=== PATIENT | male | born 1930 | race Caucasian/White ===

== ENCOUNTER 2016-08-04 12:03 | Observation (INO) | payer MEDICARE, OTHER ==
[~2016-08-04] VITALS: Ht 177.8 cm; Wt 113.2 kg
[~2016-08-04 12:03] MED LIST: COU2 PO; FINASTERIDE PO; GABEPENTIN PO; GLIP5TAB26 PO; MVI PO; NYST15CR TP; PRE10 PO; PROT40T PO; VICES PO
[2016-08-04 12:05] VITALS: BP 166/70; PULSE 86; RESP 16; O2SAT 96
--- NOTE | 2016-08-04 12:27 | ED.REPORT ---
HPI- Male Date of Service Aug 04, 2016 ED Provider: History of Present Illness: 85-year-old male here for blood in his catheter. He has a history of this starting 1 month ago. His hospitalized for likely urosepsis in [place] one month ago, and has been rehabbing at [facility] for the last 2 weeks. He has had blood in his catheter almost the entire time, he will go a day or 2 without it and the blood will return. He has had multiple Wilkins replacement and flushes the blood keeps returning. 2 days ago he was started on Cipro for UTI. In the last 3 days she has become increasingly tired and "sick" with fatigue, not feeling like doing anything. THis is prompting the visit today. No fever. No URI symptoms. No CP or SOB. Just feels ill. Last checked his warfarin was 2.8 yesterday. Saw his PCP a few days ago as well. He started with the catheter one month ago while in the hospital he has never used a catheter before that. Having low back pain but no flank pain. No abdominal pain. Nursing Notes Stated Complaint: BLOOD IN URINE Chief Complaint: Male Abdominal Pain Nursing Notes Reviewed: Yes Allergies: Coded Allergies: atorvastatin (Verified Allergy, Mild, 08/04/16) methotrexate (Verified Allergy, Mild, 08/04/16) oxycodone (Verified Adverse Reaction, Intermediate, agitation, anxiety, ) Scheduled Ciprofloxacin (Cipro) 250 Mg Tablet 250 MG PO BID for 5 days starting on 08/04/16 Duloxetine (Duloxetine) 30 Mg Capsule.dr 30 MG PO QAM Finasteride (Finasteride) 5 Mg Tablet 5 MG PO HS Gabapentin (Gabapentin) 100 Mg Capsule 200 MG PO QAM Gabapentin (Gabapentin) 400 Mg Capsule 400 MG PO HS Glipizide (Glipizide) 5 Mg Tablet 5 MG PO QAM Metoprolol Tartrate (Metoprolol Tartrate) 25 Mg Tablet 25 MG PO BID Multivits,Ca,Minerals/Iron/FA (Thera-M Tablet) 1 Each Tablet 1 EACH PO QAM Oxybutynin Chloride (Oxybutynin Chloride) 5 Mg Tablet 5 MG PO BID Prednisone (PredniSONE) 10 Mg Tablet 10 MG PO QAM Warfarin Sodium (Warfarin Sodium) 1 Mg Tablet 1 MG PO 2 times weekly every saturday and thursday evening Warfarin Sodium (Warfarin Sodium) 2 Mg Tablet 2 MG PO 4 times weekly every saturday,saturday,saturday , saturday evening Scheduled PRN Bisacodyl (Dulcolax Rectal) 10 Mg Supp.rect 10 MG RC q3days PRN PRN For Constipation Docusate Sodium (Docusate Sodium) 250 Mg Capsule 250 MG PO BID PRN PRN For Constipation Hydrocodone-Acetaminophen 10-325 mg (Hydrocodone-Acetaminophen 10-325 mg) 1 Each Tablet 2 TABLET PO Q4H PRN PRN For Pain for pain level 6-10 Hydrocodone-Acetaminophen 10-325 mg (Hydrocodone-Acetaminophen 10-325 mg) 1 Each Tablet 1 TABLET PO Q4H PRN PRN For Pain for pain level 1-5 Magnesium Hydroxide (Milk of Magnesia) 400 Mg/5 Ml Oral.susp 30 ML PO DAILY PRN PRN For Constipation Sennosides (Senna) 8.6 Mg Tablet 8.6 MG PO BID PRN PRN For Constipation General Time Seen by MD: 12:15 Transferred From: skilled nursing Chief Complaint Blood in urine, Other (sick) Hx Obtained From: Patient, Spouse Arrived By: Walk-in Onset Occurred: 2 days ago Context of Onset: Spontaneous Symptom Duration: Since onset Location: : Back Severity: Current: Moderate Severity: Maximum: Moderate Associated with: Reports: Chills, Nausea Pertinent Negative: Pt denies other symptoms Recent Healthcare: Recent doctor visit, Recent hospitalization Similar Sx Previous: Yes Risk- Male Risk Notes: recent urosepsis Review of Systems Review of Systems Note: hematuria and feeling ill Basic Review of Systems Eyes: Vision NL, No discharge ENT: Hearing NL, No pain, No nasal congestion, No pharyngeal pain Respiratory: No shortness of breath, No cough, No wheeze Cardiovascular: No chest pain, No dyspnea on exertion, No orthopnea, No parox noct dyspnea, No palpitations Allergy / Immune: No allergy Neurologic: NL mental status, No weakness, No numbness Psychiatric: Normal thought content Constitutional: Reports: Chills, Fatigue, Malaise GI: Reports: Nausea, Denies: Abdominal pain, Vomiting Male: Reports Hematuria, Denies Dysuria, Denies Penile discharge Musculoskeletal: Reports: Back pain (lumbar) Complete sys rev & neg: except as marked. Physical Exam Initial Vital Signs Vital Signs (First) Date Time Temp Pulse Resp B/P Pulse Ox O2 Delivery O2 Flow Rate FiO2 08/04/16 12:05 36.3 86 16 166/70 96 Room Air Initial VS: Reviewed, Vital signs normal General/Constitutional: Well-developed, Well-nourished Head / Eyes: Atraumatic, Normocephalic, PERRL ENT: Mucous membranes moist, Conjunctiva normal, No scleral icterus Neck: Supple, Non-tender, Full range of motion Respiratory: Breath sounds normal, Clear to auscultation, No respiratory distress Cardiovascular: Intact distal pulses Back: No CVA tenderness Lymphatic: No lymphadenopathy Extremities: Vascular intact, Neuro intact, No swelling, No tenderness Skin: Warm, Dry, No cyanosis Neurologic: Alert, Oriented, Nonfocal Psychiatric: Mood/affect normal, Behavior normal, Normal thought content large amount of blood noted in wilkins General/Constitutional: Awake, Alert appears sick Abdomen: Atraumatic, Soft, Non-tender, McBurney's non-tender, No guarding, No rebound, BS normoactive, No distention, No hernia, No palpable mass, No pulsatile mass Head / Eyes: Atraumatic, Normocephalic, PERRL goopy L eyelid Respiratory / Chest: Atraumatic, Breath sounds NL, Breath sounds = bilat, No respiratory distress Cardiovascular: Cap refill not delayed Heart Sounds / Murmur: Positive: Systolic murmur present.. (IV/) Back: Atraumatic, Inspection NL Muscle Spasm / ROM: Positive: Latisimus dorsi tender R, Lumbar area spasm no cva tenderness Interpretation & Diagnostics Interpretation & Diagnostics: IMPRESSION: Streaky opacities in the lung bases bilaterally compatible with atelectasis versus less likely pneumonia. Please correlate with clinical and laboratory data. Lab Results Interpretation Result Diagram: 08/04/16 1253 08/04/16 1253 Test 08/04/16 12:32 08/04/16 12:53 08/04/16 13:50 08/04/16 14:28 Lactic Acid Level 1.7mmol/L (0.4-2.0) White Blood Count 8.8th/mm3 (3.8-10.1) Red Blood Count 3.06mil/mm3 (4.40-5.80) Hemoglobin 9.0g/dL (13.8-17.2) Hematocrit 29.3% (41.0-50.0) Mean Corpuscular Volume 95.8fL (81-100) Mean Corpuscular Hemoglobin 29.4pg (27.0-35.0) Mean Corpuscular Hemoglobin Concent 30.7% (32.0-37.0) Red Cell Distribution Width 15.2% (12.3-15.4) Platelet Count 187bil/L (150-400) Neutrophils (%) (Auto) 75.7% (40-74) Lymphocytes (%) (Auto) 13.9% (14-46) Monocytes (%) (Auto) 6.2% (4-12) Eosinophils (%) (Auto) 3.4% (0-5) Basophils (%) (Auto) 0.6% (0-3) Prothrombin Time 26.6sec (8.1-12.5) Prothromb Time International Ratio 2.44ratio Sodium Level 142mEq/L (134-144) Potassium Level 4.2mEq/L (3.5-5.2) Chloride Level 102mEq/L (97-108) Carbon Dioxide Level 28mmol/L (18-29) Blood Urea Nitrogen 17mg/dL (8-27) Creatinine 0.92mg/dL (0.76-1.27) Estimat Glomerular Filtration Rate 84mL/min (>59) Glucose Level 75mg/dL (60-99) Calcium Level 8.2mg/dL (8.5-10.1) Magnesium Level 1.4mg/dL (1.6-2.6) Total Bilirubin 0.4mg/dL (0.0-1.2) Aspartate Amino Transf (AST/SGOT) 30U/L (0-50) Alanine Aminotransferase (ALT/SGPT) 16U/L (0-44) Alkaline Phosphatase 58U/L (25-160) Total Protein 5.3g/dL (6.4-8.4) Albumin 3.1g/dL (3.4-5.0) Urine Color Bloody (YELLOW) Urine Appearance Turbid (CLEAR,HAZY) Urine pH 6.0 (5.0-8.0) Urine Specific [place] 1.020 (1.003-1.035) Urine Protein 30mg/dL (NEG,TRACE) Urine Glucose (UA) Negativemg/dL (NEGATIVE) Urine Ketones Negativemg/dL (NEGATIVE) Urine Occult Blood Large (NEGATIVE) Urine Nitrite Negative (NEGATIVE) Urine Bilirubin Negative (NEGATIVE) Urine Urobilinogen Normalmg/dL (NORMAL) Urine Leukocyte Esterase Small (NEGATIVE) Urine RBC >50/hpf (0-2) Urine WBC 6-10/hpf (0-5) Urine Epithelial Cells Occasional/hpf (NONE-MOD) Urine Crystals None seen (NONE SEEN) Urine Bacteria None/hpf (NONE-FEW) Urine Hyaline Casts None/lpf (NONE) Urine Granular Casts None seen (NONE SEEN) Urine Waxy Casts None seen (NONE SEEN) Urine Red Blood Cell Casts None seen (NONE SEEN) Urine White Blood Cell Casts None seen (NONE SEEN) Urine Mucus None seen (None Seen) Urine Trichomonas None seen (NONE SEEN) Urine Yeast None (NONE SEEN) Urinalysis Comment None Urine Culture Reflexed Indicated Troponin T 0.053ug/L (0.0-0.011) Re-Eval/Medical Decision Med Decision/Clinical Course UC from [facility] obtained, [facility]. RBC, H&H unchanged, up a little. Elevated troponin reported for the lab will admit patient. PT still denies CP. lungs CTA. Discussed case with Dr. Lopez. NO change in second EKG. [id number] Dr Mock here for report for admit. Source of Hx: Old records, Family Discharge & Departure Shift Change Sign-Out Patient Care Transferred: No Discussed Complaint(s): Yes Laboratory Evaluation: Lab evaluation discussed Imaging Studies: Imaging discussed Response to Therapy: Unchanged Impression: Primary Impression: Non-STEMI (non-ST elevated myocardial infarction) Additional Impressions: Urinary tract infection Urinary tract infection type: catheter-associated UTI Encounter type: subsequent encounter Qualified Code: T83.51XD - Infection and inflammatory reaction due to indwelling urinary catheter, subsequent encounter Pneumonia Pneumonia type: due to unspecified organism Laterality: unspecified laterality Lung location: unspecified part of lung Qualified Code: B99.9 - Unspecified infectious disease Disposition: ADMITTED TO HOSPITAL Discharge Condition All VS Reviewed: Yes Condition: Stable Referrals: Yazan Hull MD (PCP) EDSupervising Provider for APC: Davidson Lopez MD copies to: Satnam Johnson MD; Davidson Lopez MD, Linnea K ARNP Aug 04, 2016 12:27
[2016-08-04] MEDS ORDERED: 0.9% Sodium Chloride 500 ML IV ONE (12:35)
[2016-08-04] MEDS ORDERED: GABA-504 PO (12:51)
[2016-08-04] MEDS ORDERED: GABA-500 PO (12:51)
[2016-08-04 13:05] LABS: BASOPHILS % (AUTO) 0.6 % (0-3); EOSINOPHILS % (AUTO) 3.4 % (0-5); MONOCYTES % (AUTO) 6.2 % (4-12); Mean Corpuscular Hemoglobin 29.4 pg (27.0-35.0); Mean Corpuscular Volume 95.8 fL (81-100); NEUTROPHILS % (AUTO) 75.7 % (40-74); Platelet Count 187 bil/L (150-400)
[2016-08-04] MEDS ORDERED: METO25TA6 PO (13:22)
[2016-08-04] MEDS ORDERED: CIPR-232 PO (13:22)
[2016-08-04] MEDS ORDERED: WARF1TAB6 PO (13:22)
[2016-08-04] MEDS ORDERED: OXYB5TAB10 PO (13:22)
[2016-08-04] MEDS ORDERED: SENN-133 PO (13:22)
[2016-08-04] MEDS ORDERED: WARF2TAB7 PO (13:22)
[2016-08-04] MEDS ORDERED: HYDR-3740 PO ×2 (13:22→13:45)
[2016-08-04 13:23] LABS: INR 2.44 ratio
[2016-08-04 13:38] LABS: Magnesium 1.4 mg/dL (1.6-2.6)
[2016-08-04] MEDS ORDERED: BISA10SU61 RC (13:45)
[2016-08-04] MEDS ORDERED: GLPZ5T PO (13:45)
[2016-08-04] MEDS ORDERED: MULT-32 PO (13:45)
[2016-08-04] MEDS ORDERED: DOCU250C2 PO (13:45)
[2016-08-04] MEDS ORDERED: DULO30CA50 PO (13:45)
[2016-08-04] MEDS ORDERED: PRE10 PO (13:45)
[2016-08-04] MEDS ORDERED: FINA5TAB9 PO (13:45)
[2016-08-04] MEDS ORDERED: MAGN400O4 PO (14:07)
[2016-08-04 14:09] VITALS: BP 149/66; PULSE 71; RESP 18; O2SAT 97
--- NOTE | 2016-08-04 14:10 | DRSVH ---
PROCEDURE: X-RAY CHEST ONE VIEW, PORTABLE ([id number]) INDICATIONS: malaise TECHNIQUE: One view of the chest was acquired. COMPARISON: None. FINDINGS: Surgical changes and devices: Bilateral shoulder arthroplasties. Fixation hardware in the thoracic spine. Lungs and pleura: No pleural effusions or pneumothorax acute opacities in the lung bases bilaterally . Mediastinum: Mediastinal contours appear normal. Heart size is normal. Bones and chest wall: No suspicious bony lesions. Overlying soft tissues appear unremarkable. IMPRESSION: Streaky opacities in the lung bases bilaterally compatible with atelectasis versus less likely pneumonia. Please correlate with clinical and laboratory data. Dictated by: Marbella Kitchen MD, PhD on 08/04/2016 at 14:07 Approved by: Marbella Kitchen MD, PhD on 08/04/2016 at 14:08
[2016-08-04 14:13] LABS: APPEARANCE,URINE TURBID (CLEAR,HAZY); COLOR,URINE BLOODY (YELLOW); OCCULT BLOOD,URINE LARGE (NEGATIVE); UROBILINOGEN,URINE NORMAL (NORMAL)
[2016-08-04 16:28] VITALS: BP 165/62; PULSE 82; RESP 19; O2SAT 99
[2016-08-04] MEDS ORDERED: Alum-Mag Hydrox-Simeth 30 mL Suspension PO PRN ×2 (17:30→17:45)
[2016-08-04] MEDS ORDERED: Ondansetron 2 mg/mL 2 mL Inj IVPUSH PRN ×2 (17:30→17:45)
[2016-08-04] MEDS ORDERED: Polyethylene Glycol (PEG) 17 Gm Powder PO PRN (17:45)
[2016-08-04 17:49] VITALS: BP 175/97; PULSE 75; RESP 18; O2SAT 92
--- NOTE | 2016-08-04 18:35 | PCM.HPMED ---
Subjective Date of Service Aug 04, 2016 Primary Provider: Admitting Physician: Lulu Mock MD Primary Care Physician: Satnam Johnson MD Attending Physician: Lulu Mock MD Chief Complaint: hematuria and feeling "poorly" History of Present Illness: he was recently in [facility] in [place] July 12 through July 25 and then discharged to a [facility] facility. He has continued to have hematuria, does have an indwelling Wilkins. His says he was seen by his urologist this past week who did not make any changes and told him to return in 4 weeks. They felt his hematuria was worsening and they came here to the emergency department on a Saturday for another opinion. Because he complained of feeling poorly. Troponin was done which is just slightly elevated and because of this the emergency room physician feels he needs admission. He denies any chest pain or shortness of breath. No cough. No fever chills or sweats. Review of Systems: As noted apparently continues to have red urine in his Wilkins bag. He does have chronic back pain and also some other chronic arthritic pains but does not feel he has any, acute pain. review of systems is otherwise unremarkable except as above Allergies Coded Allergies: atorvastatin (Verified Allergy, Mild, 08/04/16) methotrexate (Verified Allergy, Mild, 08/04/16) oxycodone (Verified Adverse Reaction, Intermediate, agitation, anxiety, ) Home Medications Duloxetine 30 mg each am Finasteride 5 mg each bedtime Glipizide 5 mg every morning Prednisone 10 mg every morning Multivitamin every morning Warfarin 1 mg on August 02, 2 mg on August 03 Gabapentin 200 mg every morning and 400 mg at bedtime Cipro 250 mg twice a day scheduled to start this morning is not clear he received any doses DOS 250 mg twice a day when necessary Hydrocodone acetaminophen 10-325, 1 tablet pain 1-5, 2 tablets if 6-10, Every 4 hours when necessary Metoprolol 25 mg twice a day Oxybutynin 5 mg twice a day Olanzapine 2.5 mg prn for anxiety appears to have been DC'd [facility] Hospitalized in at [facility] in [place], July 12 through 07/25/2016 - Admitted with confusion - Found to have cellulitis of the lower legs with possible sepsis - Acute kidney injury from obstruction from a very large clot in his bladder which was evacuated - Several bleeders fulgurated during cystoscopy - Persistent hematuria - Could not tolerate Flomax due to low blood pressure and was discharged with an indwelling Wilkins Type II diabetes mellitus with polyneuropathy Hypertension Sleep apnea hx GI bleeding 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 January 2015 Polymyalgia rheumatica on chronic prednisone so presumed adrenal insufficiency Chronic Afib on chronic anticoagulation Chronic kidney disease stage II Hyperlipidemia aortic stenosis Ischemic heart disease is on his problem list but his last coronary angiogram in 2012 showed only mild irregularities Renal calculus, left - reports lithrotripsy failed Surgical History lumbar spine surgery Bilateral total knee replacement Rotator cuff repair Tonsillectomy Shoulder replacement bilaterally Social History Hx Alcohol Use: No (2-3 TIMES WEEKLY) Hx Substance Use: No Hx Tobacco Use: No Additional Information has POLST from SNF, reviewed with him and his Exam Vital Signs Vital Sign - Last Date Time Temp Pulse Resp B/P Pulse Ox O2 Delivery O2 Flow Rate FiO2 08/04/16 17:49 37.5 75 18 175/97 92 Room Air Exam General: Alert and oriented but feels details of his medical history should obtained from , no acute distress HEENT: Unremarkable Neck thick but no apparent JVD, carotids 2+ Heart: Regular, 2 to 3/6 systolic murmur throughout Lungs: Clear Abdomen: Soft, non-tender, normal bowel tones Extremities: trace pedal edema, runs and skin changes of the anterior lower legs Neuro: Strong and equal, able to raise both legs off the bed Lab and Diagnostics Result Diagram: 08/04/16 1253 08/04/16 1253 Assessment & Plan Assessment & Plan Assessment & Plan # Mildly elevated troponin of unclear significance, no symptoms of acute ischemia and no acute EKG changes - no significant CAD on angiogram in 2012 - Will observe and repeat troponin in the am # Hematuria, present for at least a month - continue wilkins - patient and request urology consult for second opinion, have placed a call to urology but they haven't responded. Did warn patient and that they may not want to consult over the weekend for a chronic problem # Urine culture from August 02 with 50,000-100,000 Morganella morganii - see below - also 10,000-50,000 viridan streptococcus group for which sensitivities were not done, or at least not yet reported # Chest x-ray with basilar atelectasis versus less likely pneumonia - Patient has been feeling poorly but no other symptoms of pneumonia - For now will treat his UTI with ceftriaxone, which would also treat some pneumonia, instead which apparently he has been prescribed but not started # Anemia, no acute worsening - Hct 29.3 on July 21 # Hypomagnesemia - will give 1 gm IV now and recheck in am # Chronic A. fib on chronic anticoagulation - Continue warfarin and metoprolol # Type II diabetes mellitus with polyneuropathy - Continue his usual medications - Glucoscans and use when necessary sliding scale insulin if needed # Hypertension - Continue metoprolol Lulu Mock MD Aug 04, 2016 19:14 Lulu Mock MD Aug 04, 2016 18:35
--- NOTE | 2016-08-04 18:51 | NUR ---
Admission Patient admitted to the floor at 1745 from the ED. Admit questions and med list accomplished by primary RN. Vitals - t-37.5, bp-165/62, p-82, rr-19, o2-92 @ RA. Patient complained of 0/10 pain. Oriented patient to the room, placed bed in lowest position and call light within reach.
--- NOTE | 2016-08-04 19:14 | PCM.HPMED ---
Subjective Date of Service Aug 04, 2016 Primary Provider: Admitting Physician: Lulu Mock MD Primary Care Physician: Satnam Johnson MD Attending Physician: Lulu Mock MD Chief Complaint: hematuria and feeling "poorly History of Present Illness: he was recently in [facility] in [place] July 12 through July 25 and then discharged to a correction facility. He has continued to have hematuria, does have an indwelling Wilkins. His says he was seen by his urologist this past week who did not make any changes and told him to return in 4 weeks. They felt his hematuria was worsening and they came here to the emergency department on a Saturday for another opinion. Because he complained of feeling poorly. Troponin was done which is just slightly elevated and because of this the emergency room physician feels he needs admission. He denies any chest pain or shortness of breath. No cough. No fever chills or sweats. Allergies Coded Allergies: atorvastatin (Verified Allergy, Mild, 08/04/16) methotrexate (Verified Allergy, Mild, 08/04/16) oxycodone (Verified Adverse Reaction, Intermediate, agitation, anxiety, ) PMH Social History Hx Alcohol Use: No (2-3 TIMES WEEKLY) Hx Substance Use: No Hx Tobacco Use: No Exam Vital Signs Vital Sign - Last Date Time Temp Pulse Resp B/P Pulse Ox O2 Delivery O2 Flow Rate FiO2 08/04/16 17:49 37.5 75 18 175/97 92 Room Air Lab and Diagnostics Result Diagram: 08/04/16 1253 08/04/16 1253 Assessment & Plan # Mildly elevated troponin of unclear significance, no symptoms of acute ischemia and no acute EKG changes - no significant CAD on angiogram in 2012 - Will observe and repeat troponin in the am # Hematuria, present for at least a month - continue wilkins - patient and request urology consult for second opinion, have placed a call to urology but haven't responded. Did warn them that they may not want to consult over the weekend for a chronic problem Lulu Mock MD Aug 04, 2016 19:14
[2016-08-04] MEDS ORDERED: Glucose 40% Oral Gel 15 Gm Tube PO PRN (19:30)
[2016-08-04] MEDS ORDERED: cefTRIAXone Inj 1,000 MG in Dextrose 5% Minibag Plus 50 ML IV SCH (19:30)
[2016-08-04] MEDS ORDERED: Magnesium Sulfate 50% Inj 1 GM in Dextrose 5% 50 ML IV ONE (19:40)
--- NOTE | 2016-08-04 19:45 | NUR ---
Case Management: RITCHIE Newell: Explained RITCHIE to pt, his and son Satnam who are all at bedside. Pt refusing to sign, states maybe he will sign it tomorrow. I asked if I could write "refused to sign". This was agreeable. Copy of RITCHIE provided, also Medicare self administered medication information. Repeatedly explained that if he has had a qualifying stay, this admit will not affect SNF placement if he has a skillable need. Addendum: 08/04/16 at 2009 by PATTI ASCENCIO SS Pt is from [facility] in [place]. Per the facility is aware he is here, and will hold his bed for 3 days. Pt asking about leaving hospital tonight or tomorrow, upset because he has not seen the MD. Pt's RN notified that pt wanting to speak with her about getting the MD, and possibly leaving the hospital.
[2016-08-04 20:27] VITALS: BP 162/73; PULSE 85; RESP 18; O2SAT 96
[2016-08-04] MEDS ORDERED: HYDROcodone-APAP 10-325 mg PO PRN ×2 (20:45)
[2016-08-04] MEDS ORDERED: Magnesium Hydroxide 355 mL Oral Suspension PO PRN (20:45)
[2016-08-04] MEDS: HYDROcodone-APAP 5-325 mg Tablet PO PRN ×2 (21:56→22:03)
[2016-08-04] MEDS: Insulin LISPRO 300 Unit/3 mL Inj SUBQ SCH (21:58)
[2016-08-04] MEDS ORDERED: Magnesium Hydroxide 10 mL Oral Concentration PO PRN (22:46)
[2016-08-05 04:57] VITALS: BP 148/74; PULSE 76; RESP 18; O2SAT 98
[2016-08-05 06:54] LABS: Magnesium 1.5 mg/dL (1.6-2.6)
[2016-08-05 06:55] LABS: TROPONIN T 0.059 ug/L (0.0-0.011)
--- NOTE | 2016-08-05 07:14 | NUR ---
Noneventful Night. Pt denies any chest pain/pressure/SOB/N/V/Fever/chills. C/o feet pain 12/27, [place] given, pain resolved. VSS, red urine with clots in [place], progressively stripper soft plastic. Sufficient urine output. Anxious going home.
[2016-08-05] MEDS ORDERED: DULoxetine 30 mg DR Capsule PO SCH (08:00)
[2016-08-05] MEDS: Insulin LISPRO 300 Unit/3 mL Inj SUBQ SCH ×2 (08:00→12:00)
[2016-08-05] MEDS ORDERED: predniSONE 10 mg Tablet PO SCH (08:00)
[2016-08-05] MEDS ORDERED: Tolterodine ER 2 mg ER24 Capsule PO SCH (08:30)
[2016-08-05] MEDS ORDERED: Magnesium Sulf 2 Gm/50mL Water 2 GM in IV Premix 1 EACH IV ONE (09:22)
[2016-08-05 09:34] LABS: INR 2.16 ratio
[2016-08-05] MEDS ORDERED: Magnesium Sulf 4 Gm/100 mL H2O 4 GM in IV Premix 1 EACH IV ONE (10:30)
--- NOTE | 2016-08-05 11:04 | NUR ---
Social Work: Initial Assessment Data: Pt is an 85 y/o male admitted for nstemi, hematuria, UTI. Pt's PCP is Dr Johnson, pt's insurance is Medicare with [employer]. EMR reviewed. Readmit score is 3. DIAPHRAGM BUILDER met with pt at bedside. Role explained. Pt states he lives at home with his but is currently at [facility], [facility], for rehab. Pt states that typically he drives, owns a w/c, has no hx of HH, no LTC or VA benefits, and is not a caregiver. Pt states that he plans to leave the hospital this morning. DIAPHRAGM BUILDER informed him that MD has not yet seen him. Pt states he does not care and wants to go back home. DIAPHRAGM BUILDER called [facility] and confirmed pt is there as a SNF patient and that if pt leave AMA he cannot go back there. DIAPHRAGM BUILDER notified pt and his spouse of this. Pt became upset saying "You messed up all of my plans." DIAPHRAGM BUILDER apologized and stated that she wanted to make sure they had all of the information before make a decision to leave AMA, but stated they do have that right. Pt states he might still leave. DIAPHRAGM BUILDER notified RN and MD of this. Assessment: Pt from [facility] rehab. Plan: Pt will likely d/c back to [facility] once medically stable. DIAPHRAGM BUILDER will continue to follow. GLADIS Wadsworth Addendum: 08/05/16 at 1108 by FRANCIS ROBLES Amended: Links added.
--- NOTE | 2016-08-05 14:28 | PCM.DIMED ---
Discharge Instructions Date of Service Aug 05, 2016 Dates of Hospitalization Aug 04, 2016 at 17:05 Discharge Diagnosis Discharge Diagnosis Hematuria with slightly positive troponin Diet Heart Healthy Activity Limited until seen by PCP (Limited until seen by Dr. Chanell Rees) Call your provider Fever or Chills, Shortness of breath, Bleeding, Chest pain, Vomitting, Excessive diarrhea, Weakness (unilateral), Other Patient Instructions Follow-up Provider: Satnam Johnson MD Follow-up with PCP in: 1 week Provider: Chanell Rees DO Follow-up in: 1 week (Patient to see Dr. Rees VERONICA for a cardiac evaluation and possible stress test.) Viraj Kerns MD Aug 05, 2016 14:28
[2016-08-05] MEDS ORDERED: Acetaminophen PO (14:32)
[2016-08-05] MEDS ORDERED: Aspirin-Expunged Drug, Do Not Renew! PO (14:32)
[2016-08-05] MEDS ORDERED: POLY17PO6 PO (14:32)
--- NOTE | 2016-08-05 14:45 | NUR ---
Social Work: Discharge Data: Pt is on day 1 of hospitalization. EMR reviewed. D/C orders are in. Pt states his family will drive him back to SNF. WIRELESS STORE MANAGER notified Malena with [facility] that pt will be leaving hospital around 3pm. WIRELESS STORE MANAGER faxed over clinicals and d/c orders. Packet given to pt to give to facility. No further d/c planning needs at this time. WIRELESS STORE MANAGER will continue to follow if needs arise. Assessment: Pt who is independent at baseline, from SNF. Plan: Pt will d/c back to [facility] via POV with family. No further d/c planning needs at this time. WIRELESS STORE MANAGER will continue to follow if needs arise. GLADIS Wadsworth
--- NOTE | 2016-08-05 14:55 | NUR ---
Discharge Patient left floor prior to this RN explaining discharge instructions to him or family members who were at bedside. IV discontinued fully intact. Report given to [facility]. Also informed facility nurse that patient did refuse VS to be taken as well as cardiac stress test and echo that was recommended..
--- NOTE | 2016-08-05 23:28 | PCM.DC.MED ---
Discharge Summary Date of Service Aug 05, 2016 Dates of Hospitalization Date of Hospital Admission Aug 04, 2016 at 17:05 Date of Discharge: Aug 05, 2016 Providers: Admitting Physician: Lulu Mock MD Primary Care Physician: Satnam Johnson MD Attending Physician: Lulu Mock MD Diagnosis at Time of Discharge Diagnosis at Time of Discharge Hematuria with slightly positive troponin Brief History The patient is an 85-year-old white male who was recently in [facility] in [place] July 12 through July 25 and then discharged to a [facility] facility. He has continued to have hematuria, does have an indwelling Wilkins. His says he was seen by his urologist this past week who did not make any changes and told him to return in 4 weeks. They felt his hematuria was worsening and they came here to the emergency department on a Saturday for another opinion. Because he complained of feeling poorly. Troponin was done which is just slightly elevated and because of this the emergency room physician feels he needs admission. He denies any chest pain or shortness of breath. No cough. No fever chills or sweats.. The patient continued to deny any chest pain and was told about his 2 positive troponins however he stated that he would refuse to have a stress test done here at [facility] would prefer to go to Dr. Chanell Rees's office and have it done there. Once again patient refused to stay here any longer for any further testing. His hematuria had resolved. Hospital Course The patient is an 85-year-old white male who was recently in [facility] in [place] July 12 through July 25 and then discharged to a [facility] facility. He has continued to have hematuria, does have an indwelling Wilkins. His says he was seen by his urologist this past week who did not make any changes and told him to return in 4 weeks. They felt his hematuria was worsening and they came here to the emergency department on a Saturday for another opinion. Because he complained of feeling poorly. Troponin was done which is just slightly elevated and because of this the emergency room physician feels he needs admission. He denies any chest pain or shortness of breath. No cough. No fever chills or sweats.. The patient continued to deny any chest pain and was told about his 2 positive troponins however he stated that he would refuse to have a stress test done here at [facility] would prefer to go to Dr. Chanell Rees's office and have it done there. Once again patient refused to stay here any longer for any further testing. His hematuria had resolved. # Mildly elevated troponin of unclear significance, no symptoms of acute ischemia and no acute EKG changes - no significant CAD on angiogram in 2012 - Patient refuses to stay at [facility] in further and promises that he will follow-up with his copy and print associate in [place] Dr. Chanell Rees. # Hematuria, present for at least a month now resolved today. - continue wilkins - patient and request urology consult for second opinion, the admitting hospitalist placed a call to urology but they haven't responded. Did warn patient and that they may not want to consult over the weekend for a chronic problem # Urine culture from August 02 with 50,000-100,000 Morganella morganii - see below - also 10,000-50,000 viridan streptococcus group for which sensitivities were not done, or at least not yet reported # Chest x-ray with basilar atelectasis versus less likely pneumonia - Patient has been feeling poorly but no other symptoms of pneumonia - For now will treat his UTI with ceftriaxone, which would also treat some pneumonia, instead which apparently he has been prescribed but not started - Patient may resume his Cipro as at home. # Anemia, no acute worsening - Hct 29.3 on July 21 # Hypomagnesemia - will give 1 gm IV now and recheck in am # Chronic A. fib on chronic anticoagulation - Continue warfarin and metoprolol # Type II diabetes mellitus with polyneuropathy - Continue his usual medications - Glucoscans and use when necessary sliding scale insulin if needed # Hypertension - Continue metoprolol Disposition: This patient is refusing any further care. [facility] Aug 04, 2016 19:14 Exam Vital Signs (Last) Date Time Temp Pulse Resp B/P Pulse Ox O2 Delivery O2 Flow Rate FiO2 08/05/16 04:57 37.0 76 18 148/74 98 Room Air Exam General: Patient is in no apparent distress sitting up the side of the bed demanding to be discharged today HEENT: Head is atraumatic and normocephalic. Eyes: Pupils are equally round and reactive to light and accommodation. Extraocular muscles are intact. Sclera are white, anicteric. Subconjunctival mucosa is pink. Ears and nose are unremarkable. Oropharynx: There is no mucosal lesions, there is no thrush, there is no pharyngitis. Neck: Is obese, supple, there are no nodes, or masses or tenderness. Chest: Is clear to auscultation and percussion. There are no rales, rhonchi, wheezes or rubs. Sounds are diminished bilaterally. Heart: Rate, rhythm is regular. There is no murmur, rub or gallop. Abdomen: Good bowel sounds are present. Abdomen is obese, soft, nontender, no organomegaly or masses were appreciated. Extremities: Are symmetrical and well perfused. There is no edema, there is no cellulitis, no rash. Neurologic: There are no focal neurological deficits. Cranial nerves II through XII are intact. There are no sensory or motor deficits. Psychiatric: Patients mood is calm and he shows no sign of agitation. However , patient is insistent on being discharged by the risk of possibly having a non- ST elevated myocardial infarction. Genital: Deferred Rectal: Deferred Test 08/04/16 12:32 08/04/16 12:53 08/04/16 13:50 08/05/16 05:34 Lactic Acid Level 1.7mmol/L (0.4-2.0) White Blood Count 8.8th/mm3 (3.8-10.1) Red Blood Count 3.06mil/mm3 (4.40-5.80) Hemoglobin 9.0g/dL (13.8-17.2) Hematocrit 29.3% (41.0-50.0) Mean Corpuscular Volume 95.8fL (81-100) Mean Corpuscular Hemoglobin 29.4pg (27.0-35.0) Mean Corpuscular Hemoglobin Concent 30.7% (32.0-37.0) Red Cell Distribution Width 15.2% (12.3-15.4) Platelet Count 187bil/L (150-400) Neutrophils (%) (Auto) 75.7% (40-74) Lymphocytes (%) (Auto) 13.9% (14-46) Monocytes (%) (Auto) 6.2% (4-12) Eosinophils (%) (Auto) 3.4% (0-5) Basophils (%) (Auto) 0.6% (0-3) Sodium Level 142mEq/L (134-144) Potassium Level 4.2mEq/L (3.5-5.2) Chloride Level 102mEq/L (97-108) Carbon Dioxide Level 28mmol/L (18-29) Blood Urea Nitrogen 17mg/dL (8-27) Creatinine 0.92mg/dL (0.76-1.27) Estimat Glomerular Filtration Rate 84mL/min (>59) Glucose Level 75mg/dL (60-99) Calcium Level 8.2mg/dL (8.5-10.1) Total Bilirubin 0.4mg/dL (0.0-1.2) Aspartate Amino Transf (AST/SGOT) 30U/L (0-50) Alanine Aminotransferase (ALT/SGPT) 16U/L (0-44) Alkaline Phosphatase 58U/L (25-160) Total Protein 5.3g/dL (6.4-8.4) Albumin 3.1g/dL (3.4-5.0) Urine Color Bloody (YELLOW) Urine Appearance Turbid (CLEAR,HAZY) Urine pH 6.0 (5.0-8.0) Urine Specific [place] 1.020 (1.003-1.035) Urine Protein 30mg/dL (NEG,TRACE) Urine Glucose (UA) Negativemg/dL (NEGATIVE) Urine Ketones Negativemg/dL (NEGATIVE) Urine Occult Blood Large (NEGATIVE) Urine Nitrite Negative (NEGATIVE) Urine Bilirubin Negative (NEGATIVE) Urine Urobilinogen Normalmg/dL (NORMAL) Urine Leukocyte Esterase Small (NEGATIVE) Urine RBC >50/hpf (0-2) Urine WBC 6-10/hpf (0-5) Urine Epithelial Cells Occasional/hpf (NONE-MOD) Urine Crystals None seen (NONE SEEN) Urine Bacteria None/hpf (NONE-FEW) Urine Hyaline Casts None/lpf (NONE) Urine Granular Casts None seen (NONE SEEN) Urine Waxy Casts None seen (NONE SEEN) Urine Red Blood Cell Casts None seen (NONE SEEN) Urine White Blood Cell Casts None seen (NONE SEEN) Urine Mucus None seen (None Seen) Urine Trichomonas None seen (NONE SEEN) Urine Yeast None (NONE SEEN) Urinalysis Comment None Urine Culture Reflexed Indicated Magnesium Level 1.5mg/dL (1.6-2.6) Troponin T 0.059ug/L (0.0-0.011) Test 08/05/16 09:00 Prothrombin Time 23.5sec (8.1-12.5) Prothromb Time International Ratio 2.16ratio Discharge Medications Discharge Medications ([Aspirin-Expunged Drug, Do Not Renew!]) 325 MG TABLET 325 MG PO DAILY Prescribed by: FROILAN KERNS MD Ciprofloxacin (Cipro) 250 Mg Tablet 250 MG PO BID (Reported) for 5 days starting on 08/04/16 Duloxetine (Duloxetine) 30 Mg Capsule.dr 30 MG PO QAM (Reported) Finasteride (Finasteride) 5 Mg Tablet 5 MG PO HS (Reported) Gabapentin (Gabapentin) 100 Mg Capsule 200 MG PO QAM (Reported) Gabapentin (Gabapentin) 400 Mg Capsule 400 MG PO HS (Reported) Glipizide (Glipizide) 5 Mg Tablet 5 MG PO QAM (Reported) Metoprolol Tartrate (Metoprolol Tartrate) 25 Mg Tablet 25 MG PO BID (Reported) Multivits,Ca,Minerals/Iron/FA (Thera-M Tablet) 1 Each Tablet 1 EACH PO QAM ( Reported) Oxybutynin Chloride (Oxybutynin Chloride) 5 Mg Tablet 5 MG PO BID (Reported) Prednisone (PredniSONE) 10 Mg Tablet 10 MG PO QAM (Reported) Warfarin Sodium (Warfarin Sodium) 1 Mg Tablet 1 MG PO 2 times weekly (Reported) every saturday and evening Warfarin Sodium (Warfarin Sodium) 2 Mg Tablet 2 MG PO 4 times weekly (Reported) every saturday,saturday,saturday , saturday evening As needed ([Acetaminophen]) 325 MG TABLET 650 MG PO Q4H PRN PRN For Pain Prescribed by: FROILAN KERNS MD Bisacodyl (Dulcolax Rectal) 10 Mg Supp.rect 10 MG RC q3days PRN PRN For Constipation (Reported) Docusate Sodium (Docusate Sodium) 250 Mg Capsule 250 MG PO BID PRN PRN For Constipation (Reported) Hydrocodone-Acetaminophen 10-325 mg (Hydrocodone-Acetaminophen 10-325 mg) 1 Each Tablet 2 TABLET PO Q4H PRN PRN For Pain (Reported) for pain level 6-10 Hydrocodone-Acetaminophen 10-325 mg (Hydrocodone-Acetaminophen 10-325 mg) 1 Each Tablet 1 TABLET PO Q4H PRN PRN For Pain (Reported) for pain level 1-5 Magnesium Hydroxide (Milk of Magnesia) 400 Mg/5 Ml Oral.susp 30 ML PO DAILY PRN PRN For Constipation (Reported) Polyethylene Glycol 3350 (Miralax) 17 Gm Powd.pack 17 GM PO DAILY PRN PRN For Constipation Prescribed by: FROILAN KERNS MD Sennosides (Senna) 8.6 Mg Tablet 8.6 MG PO BID PRN PRN For Constipation ( Reported) Followup Plan Disposition: Patient being discharged to [facility] as he refuses any further care here at [facility]. Discharge Diet: Heart Healthy Discharge Activity: Limited until seen by PCP (Limited until seen by Dr. Chanell Rees) Follow-up Provider: Satnam Johnson MD Follow-up with PCP in: 1 week Provider: Chanell Rees DO Follow-up in: 1 week (Patient to see Dr. Rees [facility] for a cardiac evaluation and possible stress test.) Time spent Time spent on discharging this patient was greater than 35 minutes, over half of which was involved in counseling and coordination of care. Viraj Kerns MD Aug 05, 2016 23:28
== END 2016-08-05 14:51 ==
LOC: SED 12:03 → MPC 17:05
PROVIDERS: ADMIT Internal Medicine; ATTEND Internal Medicine
DX: R31.9 Hematuria, unspecified (principal); R79.89 Other specified abnormal findings of blood chemistry; D64.9 Anemia, unspecified; E83.42 Hypomagnesemia; I48.2 Chronic atrial fibrillation; E11.42 Type 2 diabetes mellitus with diabetic polyneuropathy; E11.22 Type 2 diabetes mellitus with diabetic chronic kidney disease; I12.9 Hypertensive chronic kidney disease with stage 1 through stage 4 chronic kidney disease, or unspecified chronic kidney disease; G47.30 Sleep apnea, unspecified; M35.3 Polymyalgia rheumatica; N18.2 Chronic kidney disease, stage 2 (mild); E78.5 Hyperlipidemia, unspecified; I35.0 Nonrheumatic aortic (valve) stenosis; I25.9 Chronic ischemic heart disease, unspecified; Z87.442 Personal history of urinary calculi; Z79.52 Long term (current) use of systemic steroids; Z79.84 Long term (current) use of oral hypoglycemic drugs; Z79.01 Long term (current) use of anticoagulants; Z79.82 Long term (current) use of aspirin
CPT/HCPCS: 36415; 71010; 80053; 81000; 83605; 83735; 84484; 85025; 85610; 86850; 87040; 87086; 93005; 96365; 96375; 96376; 99285; G0378; J0696; J1815; J3475; J7040